=== PATIENT | male | born 1990 | race Caucasian/White ===

== ENCOUNTER → 2024-04-13 | Outpatient (CLI) | payer OTHER | LOC: M RAD 06:59 | PROVIDERS: ATTEND Emergency Medicine | DX: M79.671 Pain in right foot (principal); M79.672 Pain in left foot; M79.662 Pain in left lower leg; M76.61 Achilles tendinitis, right leg; M65.962 Unspecified synovitis and tenosynovitis, left lower leg; M76.62 Achilles tendinitis, left leg ==